=== PATIENT | male | born 1955 | race Caucasian/White ===

== ENCOUNTER 2019-11-17 11:46 | Inpatient (IN) ==
[2019-12-21] MEDS ORDERED: DEXTROSE 50% 25 GM/50 ML VIAL IV PRN (09:02)
[2019-12-21] MEDS ORDERED: GLUCAGON 1 MG VIAL IM PRN (09:02)
[2019-12-21 10:32] LABS: Albumin 3.3 G/DL (3.4-5.0); Bilirubin,Total 0.6 MG/DL (0.2-1.0); Calcium 9.3 MG/DL (8.5-10.1); Osmolality,Calculated 280.8 MOS/KG (273-304); Total Protein 6.9 G/DL (6.4-8.3)
[2019-12-21] MEDS ORDERED: ZALEPLON 5 MG CAPSULE PO PRN (10:57)
[2019-12-21] MEDS ORDERED: MORPHINE 4 MG/1 ML VIAL IV PRN (10:57)
[2019-12-21] MEDS ORDERED: NITROGLYCERIN SL 0.4 MG TABLET SL PRN (10:57)
[2019-12-21] MEDS: CHLORHEXIDINE 0.12% ORAL RINSE 60 ML BOTTLE SWISH/SPIT SCH ×2 (11:05→22:18)
[2019-12-21 11:07] LABS: Basophils # 0.1 10*3/uL (0.0-0.2); Basophils % 0.7 % (0.0-0.8); Eosinophils # 0.2 10*3/uL (0.0-0.87); Eosinophils % 2.2 % (0.00-10.9); Hematocrit 42.7 VOL% (42.0-52.0); Hemoglobin 14.2 GM/DL (14.0-18.0); Immature Granulocytes % 0.3 %; Immature Granulocytes Absolute 0.02 #; Lymphocytes # 2.4 10*3/uL (1.4-4.0); Lymphocytes % 31.6 % (21.2-54.2); Mean Corpuscular HGB Conc 33.3 GM/DL (32-36); Mean Corpuscular Volume 89.9 FL (87-102); Mean Platelet Volume 9.2 FL (9.6-12.0); Monocytes % 7.3 % (1.7-12.7); Neutrophils % 57.9 % (38.7-73.9); Platelet Count 274 T/CUMM (130-400); Red Blood Count 4.75 MC/CUMM (3.8-5.5); Red Cell Distribution Width 12.9 % (9.3-17.3); White Blood Count 7.4 T/CUMM (4-12)
[2019-12-21 11:08] LABS: ABG HCO3 25.6 MMOL/L (20-26); ABG Oxygen Saturation 95.9 % (95-100); ABG PCO2 40.8 MM HG (35-48); ABG PH 7.415 (7.35-7.45); ABG PO2 83.2 MM HG (80-95); ABG TCO2 26.8 MMOL/L (23-27)
[2019-12-21] MEDS: INSULIN REGULAR 100 UNIT/ML SUBCUT SCH ×3 (11:16→22:17)
[2019-12-21] MEDS ORDERED: CLORAZEPATE 3.75 MG TABLET PO PRN (11:41)
[2019-12-21] MEDS ORDERED: hydrALAZINE 20 MG/1 ML VIAL IV PRN (13:59)
[2019-12-21] MEDS: CHLORHEXIDINE 4% SOLN 118 ML BOTTLE TOP SCH ×2 (15:58→22:18)
[2019-12-21] MEDS ORDERED: SIMVASTATIN 40 MG TABLET PO SCH (21:00)
[2019-12-21] MEDS: metFORMIN 500 MG TABLET PO SCH (22:18)
[2019-12-22] MEDS ORDERED: PAPAVERINE 60 MG/2 ML VIAL ONE (04:22)
[2019-12-22] MEDS ORDERED: VANCOMYCIN 1,000 MG VIAL ONE (04:23)
[2019-12-22] MEDS ORDERED: VANCOMYCIN 500 MG VIAL ONE (04:23)
[2019-12-22] MEDS ORDERED: CEFUROXIME INJ 1,500 MG in SYRINGE 1 EACH IV ONE (05:00)
[2019-12-22] MEDS ORDERED: LIDOCAINE 2% 5 ML VIAL ONE ×2 (05:37→10:22)
[2019-12-22] MEDS ORDERED: SUFentanil 250 MCG/5 ML AMP ONE (05:38)
[2019-12-22] MEDS ORDERED: MIDAZOLAM 10 MG/2 ML VIAL ONE (05:38)
[2019-12-22] MEDS ORDERED: ePHEDrine 50 MG/ML VIAL ONE (05:38)
[2019-12-22] MEDS ORDERED: PHENYLEPHRINE DRIP 20 MG/250 ML PREMIX IV ONE (05:38)
[2019-12-22] MEDS ORDERED: HEPARIN/NACL 0.9% 2 UNITS/ML 500 ML IV ONE (05:38)
[2019-12-22] MEDS ORDERED: CALCIUM CHLORIDE 1,000 MG/10 ML VIAL IV ONE (05:38)
[2019-12-22] MEDS ORDERED: NITROGLYCERIN DRIP 50 MG/250 ML BOTTLE IV ONE (05:39)
[2019-12-22] MEDS ORDERED: MINERAL OIL/PETROLATUM OPH OINT 3.5 GM TUBE ONE (05:39)
[2019-12-22] MEDS ORDERED: ETOMIDATE 40 MG/20 ML VIAL IV ONE (05:39)
[2019-12-22] MEDS ORDERED: SODIUM CHLORIDE 0.9% 250 ML IV ONE (05:39)
[2019-12-22] MEDS ORDERED: SODIUM CHLORIDE 0.9% 1,000 ML IV ONE (05:39)
[2019-12-22] MEDS ORDERED: LACTATED RINGERS 1,000 ML IV ONE (05:39)
[2019-12-22] MEDS ORDERED: AMINOCAPROIC ACID 5,000 MG/20 ML VIAL ONE (05:39)
[2019-12-22] MEDS ORDERED: VECURONIUM 10 MG VIAL IV ONE (05:39)
[2019-12-22] MEDS ORDERED: FAMOTIDINE 20 MG TABLET PO ONE (06:00)
[2019-12-22] MEDS ORDERED: DIAZEPAM 5 MG TABLET PO ONE (06:00)
[2019-12-22 07:44] LABS: ABG Base Excess 1.4 MMOL/L (-2.5-2.5); ABG HCO3 25.7 MMOL/L (20-26); ABG PCO2 38.9 MM HG (35-48); ABG PH 7.427 (7.35-7.45); ABG TCO2 22.1 MMOL/L (23-27); Glucose Heart Surgery 192 MG/DL (74-106); Hematocrit Heart Surgery 42.4 PERCENT (42-52); Hemoglobin Heart Surgery 13.8 G/DL (14.0-18.0); Ionized Calcium Arterial 1.15 MMOL/L (1.21-1.46); PCO2 Patient Temp Arterial 38.9 MMHG; PH Patient Temp Arterial 7.427; Patient Temperature 37 CELCIUS; Potassium Heart/CVR 3.9 MMOL/L (3.5-5.1); Sodium Heart/CVR 138 MMOL/L (135-145)
[2019-12-22] MEDS ORDERED: INSULIN REGULAR 100 UNIT/ML ONE (07:53)
[2019-12-22 08:47] LABS: Apearance,Urine CLEAR (Clear); Bilirubin,Urine Negative (Negative); Blood, Urine Moderate mg/dL (Negative); Glucose,Urine (UA) 50 mg/dL (Negative); Ketones,Urine Negative (Negative); Mucus,Urine Occasional /LPF (Occasional); Nitrite,Urine Negative (Negative); Protein,Urine Negative; RBC,Urine 49 /HPF (0-4); Squamous Epithelial Cell,Urine Occasional /HPF (0-10); Urine Color Yellow (Yellow); Urine Specific Gravity 1.013 (1.001-1.035); Urine Urobilinogen < 2.0 EU/DL (0.2-1.0); WBC,Urine 1 /HPF (0-6)
[2019-12-22 08:59] LABS: Hematocrit Heart Surgery 28.1 PERCENT (42-52); Hemoglobin Heart Surgery 9.1 G/DL (14.0-18.0); PCO2 Patient Temp Venous 35.8 MM HG; PH Patient Temp Venous 7.453; PO2 Patient Temp Venous 40.6 MM HG; Potassium Heart/CVR 4.4 MMOL/L (3.5-5.1); VBG Base Excess 1.4 MEQ/L (0-4); VBG HCO3 25.4 MEQ/L (24-28); VBG Oxygen Saturation 82.9 %; VBG PCO2 39.5 MMHG (41-51); VBG PH 7.423; VBG PO2 46.6 MMHG (17-40)
[2019-12-22 09:36] LABS: Hematocrit Heart Surgery 30.2 PERCENT (42-52); Hemoglobin Heart Surgery 9.8 G/DL (14.0-18.0); PCO2 Patient Temp Venous 32.6 MM HG; PH Patient Temp Venous 7.498; PO2 Patient Temp Venous 40.9 MM HG; Potassium Heart/CVR 3.9 MMOL/L (3.5-5.1); VBG Base Excess 2.4 MEQ/L (0-4); VBG HCO3 26.4 MEQ/L (24-28); VBG PCO2 35.9 MMHG (41-51); VBG PH 7.468
[2019-12-22 10:09] LABS: Hemoglobin Heart Surgery 11.2 G/DL (14.0-18.0); PCO2 Patient Temp Venous 34.6 MM HG; PH Patient Temp Venous 7.474; PO2 Patient Temp Venous 40.5 MM HG; VBG Base Excess 1.5 MEQ/L (0-4); VBG HCO3 24.8 MEQ/L (24-28); VBG Oxygen Saturation 77.5 %; VBG PCO2 34.6 MMHG (41-51); VBG PH 7.474; VBG PO2 40.5 MMHG (17-40)
[2019-12-22] MEDS ORDERED: ALBUMIN 5% 12.5 GM/250 ML VIAL IV ONE (10:13)
[2019-12-22] MEDS ORDERED: PHENYLEPHRINE DRIP 40 MG/250 ML PREMIX IV ONE (10:13)
[2019-12-22] MEDS ORDERED: MAGNESIUM SULFATE 5 GM/10 ML VIAL IV ONE (10:22)
[2019-12-22] MEDS ORDERED: FUROSEMIDE 20 MG/2 ML VIAL ONE ×2 (10:22→10:23)
[2019-12-22] MEDS ORDERED: PROTAMINE SULFATE 250 MG/25 ML VIAL IV ONE (10:22)
[2019-12-22] MEDS ORDERED: DEXTROSE 5% KCL 20 MEQ 20 MEQ/1,000 ML BAG IV ONE (10:22)
[2019-12-22] MEDS ORDERED: HEPARIN 10,000 UNIT/10 ML VIAL ONE (10:22)
[2019-12-22] MEDS ORDERED: ALBUMIN 25% 25 GM/100 ML VIAL IV ONE (10:22)
[2019-12-22] MEDS ORDERED: MANNITOL 100 GM/500 ML BAG IV ONE (10:22)
[2019-12-22] MEDS ORDERED: methylPREDNISolone SOD SUC 1,000 MG/8 ML VIAL ONE (10:22)
[2019-12-22] MEDS ORDERED: SODIUM BICARBONATE 50 MEQ/50 ML VIAL IV ONE (10:22)
[2019-12-22] MEDS ORDERED: PROTAMINE SULFATE 50 MG/5 ML VIAL IV ONE (10:23)
[2019-12-22 10:33] LABS: ABG HCO3 25.3 MMOL/L (20-26); ABG PCO2 33.9 MM HG (35-48); ABG PH 7.463 (7.35-7.45); ABG TCO2 21.4 MMOL/L (23-27); Glucose Heart Surgery 285 MG/DL (74-106); Hematocrit Heart Surgery 35.9 PERCENT (42-52); Hemoglobin Heart Surgery 11.7 G/DL (14.0-18.0); PCO2 Patient Temp Arterial 33.9 MMHG; PH Patient Temp Arterial 7.463; Patient Temperature 37 CELCIUS; Potassium Heart/CVR 3.6 MMOL/L (3.5-5.1); Sodium Heart/CVR 136 MMOL/L (135-145)
[2019-12-22] MEDS: CHLORHEXIDINE 0.12% ORAL RINSE 60 ML BOTTLE SWISH/SPIT SCH ×2 (10:36→20:33)
[2019-12-22] MEDS: metFORMIN 500 MG TABLET PO SCH (10:36)
[2019-12-22] MEDS: SODIUM CHLORIDE 0.9% 1,000 ML IV SCH (10:36)
[2019-12-22] MEDS: CHLORHEXIDINE 4% SOLN 118 ML BOTTLE TOP SCH (10:36)
[2019-12-22] MEDS: INSULIN REGULAR 100 UNIT/ML SUBCUT SCH (10:36)
[2019-12-22] MEDS: AMIODARONE INJ 450 MG in DEXTROSE 5% 241 ML IV SCH ×2 (11:02→19:25)
[2019-12-22] MEDS ORDERED: MAGNESIUM SULF RIDER 4 GM in PREMIX 1 EACH IV PRN (11:10)
[2019-12-22] MEDS ORDERED: ONDANSETRON 4 MG/2 ML VIAL IV PRN (11:10)
[2019-12-22] MEDS ORDERED: INSULIN REGULAR 100 UNIT/ML IV ONE (11:10)
[2019-12-22] MEDS ORDERED: MIDAZOLAM 10 MG/2 ML VIAL IV PRN (11:10)
[2019-12-22] MEDS ORDERED: DEXTROSE 50% 25 GM/50 ML VIAL IV PRN ×2 (11:10)
[2019-12-22] MEDS ORDERED: MAGNESIUM SULF RIDER 2 GM in PREMIX 1 EACH IV PRN (11:10)
[2019-12-22] MEDS ORDERED: LACTATED RINGERS 250 ML IV PRN (11:10)
[2019-12-22] MEDS ORDERED: NITROPRUSSIDE 100 MG in DEXTROSE 5% 250 ML IV PRN (11:10)
[2019-12-22] MEDS ORDERED: CALCIUM CHLORIDE 1,000 MG/10 ML SYRINGE IV PRN (11:10)
[2019-12-22] MEDS ORDERED: POTASSIUM CHLORIDE RIDER 10 MEQ in PREMIX 1 EACH IV PRN (11:10)
[2019-12-22] MEDS ORDERED: SODIUM CHLORIDE 0.45% 1,000 ML IV SCH ×2 (11:10)
[2019-12-22] MEDS ORDERED: PHENYLEPHRINE DRIP 40 MG/250 ML PREMIX IV PRN (11:10)
[2019-12-22] MEDS ORDERED: MORPHINE 10 MG/1 ML VIAL IV PRN (11:10)
[2019-12-22] MEDS ORDERED: ACETAMINOPHEN 650 MG SUPP RECTAL PRN (11:10)
[2019-12-22] MEDS ORDERED: CHLORHEXIDINE 4% SOLN 118 ML BOTTLE TOP PRN (11:10)
[2019-12-22] MEDS ORDERED: MIDAZOLAM 2 MG/2 ML VIAL IV PRN (11:10)
[2019-12-22] MEDS ORDERED: MORPHINE 4 MG/1 ML VIAL IV PRN (11:10)
[2019-12-22] MEDS ORDERED: VECURONIUM 10 MG VIAL IV PRN ×2 (11:10)
[2019-12-22] MEDS ORDERED: AMIODARONE 150 MG/3 ML VIAL ONE (11:16)
[2019-12-22] MEDS ORDERED: SEVOFLURANE 1 UNIT/15 MINUTE INH ONE (11:16)
[2019-12-22] MEDS: LACTATED RINGERS 1,000 ML IV PRN ×2 (11:20→17:12)
[2019-12-22] MEDS ORDERED: AMIODARONE 450 MG/9 ML VIAL IV ONE (11:36)
[2019-12-22 11:37] LABS: Basophils % 0.3 % (0.0-0.8); Eosinophils # 0.1 10*3/uL (0.0-0.87); Eosinophils % 0.6 % (0.00-10.9); Hematocrit 37.9 VOL% (42.0-52.0); Hemoglobin 12.5 GM/DL (14.0-18.0); Immature Granulocytes % 0.8 %; Immature Granulocytes Absolute 0.08 #; Lymphocytes % 9.1 % (21.2-54.2); Mean Corpuscular Volume 90.5 FL (87-102); Mean Platelet Volume 8.9 FL (9.6-12.0); Monocytes % 4.3 % (1.7-12.7); Neutrophils % 84.9 % (38.7-73.9); Platelet Count 242 T/CUMM (130-400); Red Blood Count 4.19 MC/CUMM (3.8-5.5); Red Cell Distribution Width 12.6 % (9.3-17.3); White Blood Count 10.6 T/CUMM (4-12)
[2019-12-22 11:47] LABS: INR 1.3; PT Patient Result 13.5 SECS (9.8-11.9); Partial Thromboplastin Time 27.1 SECS (23.9-33.8)
[2019-12-22 11:50] LABS: ABG Base Excess -0.5 MMOL/L (-2.5-2.5); ABG Oxygen Saturation 99.8 % (95-100); ABG PCO2 35.4 MM HG (35-48); ABG PH 7.427 (7.35-7.45); ABG TCO2 20.4 MMOL/L (23-27); Glucose Heart Surgery 271 MG/DL (74-106); Hematocrit Heart Surgery 39.6 PERCENT (42-52); Hemoglobin Heart Surgery 12.9 G/DL (14.0-18.0); Potassium Heart/CVR 3.8 MMOL/L (3.5-5.1)
[2019-12-22] MEDS: ALBUMIN 5% 12.5 GM in PREMIX 1 EACH IV PRN ×5 (12:01→20:55)
[2019-12-22 12:14] LABS: Albumin 3.1 G/DL (3.4-5.0); Bilirubin,Total 1.3 MG/DL (0.2-1.0); Calcium 8.4 MG/DL (8.5-10.1); Osmolality,Calculated 284.5 MOS/KG (273-304); Total Protein 5.5 G/DL (6.4-8.3)
[2019-12-22] MEDS: POTASSIUM CHLORIDE RIDER 20 MEQ in PREMIX 1 EACH IV PRN ×4 (12:27→20:06)
[2019-12-22 12:46] LABS: ABG Base Excess -0.4 MMOL/L (-2.5-2.5); ABG HCO3 24.1 MMOL/L (20-26); ABG Oxygen Saturation 99.2 % (95-100); ABG PH 7.408 (7.35-7.45); ABG TCO2 21.1 MMOL/L (23-27); Glucose Heart Surgery 309 MG/DL (74-106); Hematocrit Heart Surgery 38.4 PERCENT (42-52); Hemoglobin Heart Surgery 12.5 G/DL (14.0-18.0); Potassium Heart/CVR 4.1 MMOL/L (3.5-5.1)
[2019-12-22 12:46] LABS: CKMB % 6.9 %
[2019-12-22 12:49] LABS: Troponin I 1.93 NG/ML (0.00-0.045)
[2019-12-22] MEDS: INSULIN REGULAR DRIP 100 ML IV SCH ×2 (12:55→23:04)
[2019-12-22 13:49] LABS: ABG Base Excess -0.8 MMOL/L (-2.5-2.5); ABG HCO3 23.7 MMOL/L (20-26); ABG Oxygen Saturation 98.7 % (95-100); ABG PCO2 38.8 MM HG (35-48); ABG PH 7.396 (7.35-7.45); Glucose Heart Surgery 295 MG/DL (74-106); Hematocrit Heart Surgery 38.2 PERCENT (42-52); Hemoglobin Heart Surgery 12.4 G/DL (14.0-18.0); Potassium Heart/CVR 3.7 MMOL/L (3.5-5.1)
[2019-12-22] MEDS ORDERED: KETOROLAC 30 MG/1 ML VIAL IV PRN (14:49)
[2019-12-22] MEDS ORDERED: oxyCODONE/ACETAMINOPHEN 5-325 MG TABLET PO PRN (14:49)
[2019-12-22 15:16] LABS: ABG Base Excess -1.1 MMOL/L (-2.5-2.5); ABG HCO3 23.5 MMOL/L (20-26); ABG Oxygen Saturation 98.4 % (95-100); ABG PCO2 39.3 MM HG (35-48); ABG PH 7.388 (7.35-7.45); Glucose Heart Surgery 272 MG/DL (74-106); Potassium Heart/CVR 3.5 MMOL/L (3.5-5.1)
[2019-12-22 16:29] LABS: ABG Base Excess -2.8 MMOL/L (-2.5-2.5); ABG HCO3 22.1 MMOL/L (20-26); ABG Oxygen Saturation 98.1 % (95-100); ABG PCO2 42.3 MM HG (35-48); ABG PH 7.341 (7.35-7.45); ABG TCO2 20.4 MMOL/L (23-27); Glucose Heart Surgery 257 MG/DL (74-106); Hematocrit Heart Surgery 36.6 PERCENT (42-52); Hemoglobin Heart Surgery 11.9 G/DL (14.0-18.0); Potassium Heart/CVR 3.7 MMOL/L (3.5-5.1)
[2019-12-22] MEDS: CEFUROXIME INJ 1,500 MG in SYRINGE 1 EACH IV SCH (18:11)
[2019-12-22 19:24] LABS: ABG Base Excess -4.2 MMOL/L (-2.5-2.5); ABG Oxygen Saturation 97.5 % (95-100); ABG PCO2 40.1 MM HG (35-48); ABG PH 7.336 (7.35-7.45); ABG TCO2 19.2 MMOL/L (23-27); Glucose Heart Surgery 249 MG/DL (74-106); Hematocrit Heart Surgery 35.2 PERCENT (42-52); Hemoglobin Heart Surgery 11.4 G/DL (14.0-18.0)
[2019-12-22] MEDS: INSULIN REGULAR 100 UNIT/ML IV PRN ×3 (19:34→23:47)
[2019-12-22] MEDS ORDERED: FUROSEMIDE 40 MG/4 ML VIAL IV PRN (19:43)
[2019-12-22 19:54] LABS: CKMB % 5.8 %
[2019-12-22 19:59] LABS: Troponin I 4.23 NG/ML (0.00-0.045)
[2019-12-22] MEDS ORDERED: AMIODARONE INJ 450 MG in DEXTROSE 5% 241 ML IV SCH (20:00)
[2019-12-22] MEDS: PANTOPRAZOLE 40 MG VIAL IV SCH (20:55)
[2019-12-23 00:21] LABS: ABG Base Excess -1.8 MMOL/L (-2.5-2.5); ABG HCO3 22.8 MMOL/L (20-26); ABG Oxygen Saturation 95.9 % (95-100); ABG PH 7.396 (7.35-7.45); ABG PO2 83.7 MM HG (80-95); Glucose Heart Surgery 161 MG/DL (74-106); Hemoglobin Heart Surgery 11.3 G/DL (14.0-18.0); Potassium Heart/CVR 3.7 MMOL/L (3.5-5.1)
[2019-12-23] MEDS: POTASSIUM CHLORIDE RIDER 20 MEQ in PREMIX 1 EACH IV PRN ×2 (00:51→06:56)
[2019-12-23 01:23] LABS: ABG PCO2 38.1 MM HG (35-48); ABG PH 7.403 (7.35-7.45)
[2019-12-23 01:24] LABS: ABG Base Excess -1.3 MMOL/L (-2.5-2.5); ABG HCO3 23.2 MMOL/L (20-26); ABG Oxygen Saturation 96.7 % (95-100)
[2019-12-23 01:25] LABS: Glucose Heart Surgery 142 MG/DL (74-106); Potassium Heart/CVR 4.3 MMOL/L (3.5-5.1)
[2019-12-23 01:27] LABS: ABG TCO2 24.4 MMOL/L (23-27); Hemoglobin Heart Surgery 11.4 G/DL (14.0-18.0)
[2019-12-23 01:54] LABS: ABG Base Excess -0.9 MMOL/L (-2.5-2.5); ABG HCO3 23.6 MMOL/L (20-26); ABG Oxygen Saturation 97.4 % (95-100); ABG PH 7.386 (7.35-7.45); ABG PO2 91.8 MM HG (80-95); ABG TCO2 21.6 MMOL/L (23-27); Glucose Heart Surgery 145 MG/DL (74-106); Hematocrit Heart Surgery 33.5 PERCENT (42-52); Hemoglobin Heart Surgery 10.9 G/DL (14.0-18.0); Potassium Heart/CVR 4.1 MMOL/L (3.5-5.1)
[2019-12-23 03:40] LABS: ABG Base Excess 0.1 MMOL/L (-2.5-2.5); ABG HCO3 24.5 MMOL/L (20-26); ABG Oxygen Saturation 96.9 % (95-100); ABG PCO2 41.6 MM HG (35-48); ABG PH 7.389 (7.35-7.45); ABG PO2 85.3 MM HG (80-95); ABG TCO2 22.5 MMOL/L (23-27); Glucose Heart Surgery 127 MG/DL (74-106); Hematocrit Heart Surgery 35.1 PERCENT (42-52); Hemoglobin Heart Surgery 11.4 G/DL (14.0-18.0); Potassium Heart/CVR 3.8 MMOL/L (3.5-5.1)
[2019-12-23 04:05] LABS: Basophils % 0.1 % (0.0-0.8); Hematocrit 34.4 VOL% (42.0-52.0); Hemoglobin 11.2 GM/DL (14.0-18.0); Immature Granulocytes % 0.2 %; Immature Granulocytes Absolute 0.02 #; Lymphocytes # 0.6 10*3/uL (1.4-4.0); Lymphocytes % 6.4 % (21.2-54.2); Mean Corpuscular HGB Conc 32.6 GM/DL (32-36); Mean Platelet Volume 9.4 FL (9.6-12.0); Neutrophils % 87.3 % (38.7-73.9); Platelet Count 227 T/CUMM (130-400); Red Blood Count 3.74 MC/CUMM (3.8-5.5); Red Cell Distribution Width 13.2 % (9.3-17.3); White Blood Count 9.8 T/CUMM (4-12)
[2019-12-23 04:21] LABS: CKMB % 4.8 %
[2019-12-23 04:26] LABS: Albumin 3.9 G/DL (3.4-5.0); Bilirubin,Direct 0.26 MG/DL (0.0-0.20); Bilirubin,Total 0.7 MG/DL (0.2-1.0); Calcium 8.6 MG/DL (8.5-10.1); Osmolality,Calculated 282.1 MOS/KG (273-304); Total Protein 6.3 G/DL (6.4-8.3)
[2019-12-23 04:52] LABS: Troponin I 4.4 NG/ML (0.00-0.045)
[2019-12-23] MEDS ORDERED: GLUCAGON 1 MG VIAL IM PRN ×3 (05:37→11:18)
[2019-12-23] MEDS ORDERED: INSULIN REGULAR 100 UNIT/ML SUBCUT SCH (06:00)
[2019-12-23] MEDS: CEFUROXIME INJ 1,500 MG in SYRINGE 1 EACH IV SCH ×2 (06:33→17:53)
[2019-12-23] MEDS ORDERED: SODIUM CHLOR 0.45% KCL 20 MEQ 20 MEQ/1,000 ML BAG IV SCH ×2 (07:30→11:18)
[2019-12-23] MEDS: INSULIN REGULAR 100 UNIT/ML SUBCUT SCH ×4 (07:58→21:54)
[2019-12-23] MEDS: CHLORHEXIDINE 0.12% ORAL RINSE 60 ML BOTTLE SWISH/SPIT SCH ×2 (08:00→21:55)
[2019-12-23] MEDS: PANTOPRAZOLE 40 MG VIAL IV SCH (08:01)
[2019-12-23] MEDS: AMIODARONE 200 MG TABLET PO SCH ×2 (09:47→21:54)
[2019-12-23] MEDS ORDERED: MAGNESIUM SULF RIDER 4 GM in PREMIX 1 EACH IV PRN (11:18)
[2019-12-23] MEDS ORDERED: DEXTROSE 10% 250 ML BAG IV PRN (11:18)
[2019-12-23] MEDS ORDERED: ACETAMINOPHEN 325 MG TABLET PO PRN (11:18)
[2019-12-23] MEDS ORDERED: MAGNESIUM HYDROXIDE SUSP 30 ML UDCUP PO PRN (11:18)
[2019-12-23] MEDS ORDERED: ZALEPLON 5 MG CAPSULE PO PRN (11:18)
[2019-12-23] MEDS ORDERED: DEXTROSE 50% 25 GM/50 ML VIAL IV PRN (11:18)
[2019-12-23] MEDS ORDERED: ALUMINUM/MAGNES/SIMETH MAX STR 30 ML UDCUP PO PRN (11:18)
[2019-12-23] MEDS ORDERED: LISINOPRIL/HCTZ 10-12.5 MG TABLET PO SCH (12:00)
[2019-12-23] MEDS: ASPIRIN EC 325 MG TABLET PO SCH (12:19)
[2019-12-23 13:13] LABS: CKMB % 3.2 %
[2019-12-23 13:14] LABS: Troponin I 3.74 NG/ML (0.00-0.045)
[2019-12-23] MEDS: ROSUVASTATIN 20 MG TABLET PO SCH (21:55)
[2019-12-24] MEDS: INSULIN REGULAR 100 UNIT/ML SUBCUT SCH ×6 (00:53→22:00)
[2019-12-24] MEDS ORDERED: FUROSEMIDE 40 MG/4 ML VIAL IV ONE (06:00)
[2019-12-24 06:58] LABS: Basophils % 0.1 % (0.0-0.8); Hematocrit 37.5 VOL% (42.0-52.0); Hemoglobin 11.7 GM/DL (14.0-18.0); Immature Granulocytes % 0.8 %; Immature Granulocytes Absolute 0.13 #; Lymphocytes # 1.9 10*3/uL (1.4-4.0); Mean Corpuscular HGB Conc 31.2 GM/DL (32-36); Mean Corpuscular Volume 95.2 FL (87-102); Mean Platelet Volume 9.8 FL (9.6-12.0); Monocytes % 8.1 % (1.7-12.7); Platelet Count 277 T/CUMM (130-400); Red Blood Count 3.94 MC/CUMM (3.8-5.5); Red Cell Distribution Width 13.2 % (9.3-17.3); White Blood Count 17.1 T/CUMM (4-12)
[2019-12-24 07:27] LABS: Alanine Aminotransferase 16 U/L (16-61); Albumin 3.6 G/DL (3.4-5.0); Alkaline Phosphatase 47 U/L (45-117); Aspartate Amino Transferase 16 U/L (0-37); Bilirubin,Indirect 0.8 MG/DL (0.0-1.0); Blood Urea Nitrogen 17 MG/DL (7-18); Estimated Glom Filtration Rate 120 ML/MIN; Glucose 193 MG/DL (74-106); Osmolality,Calculated 276.1 MOS/KG (273-304); Total Protein 6.8 G/DL (6.4-8.3)
[2019-12-24] MEDS: DOCUSATE SODIUM 100 MG CAPSULE PO SCH (08:52)
[2019-12-24] MEDS: LISINOPRIL/HCTZ 20-12.5 MG TABLET PO SCH (08:52)
[2019-12-24] MEDS: FERROUS SULFATE 325 MG TABLET PO SCH (08:52)
[2019-12-24] MEDS: metFORMIN 500 MG TABLET PO SCH ×2 (08:52→22:00)
[2019-12-24] MEDS: ASPIRIN EC 325 MG TABLET PO SCH (08:53)
[2019-12-24] MEDS: AMIODARONE 200 MG TABLET PO SCH ×2 (08:53→22:00)
[2019-12-24] MEDS: PANTOPRAZOLE 40 MG TABLET PO SCH (08:53)
[2019-12-24] MEDS: CHLORHEXIDINE 0.12% ORAL RINSE 60 ML BOTTLE SWISH/SPIT SCH ×2 (10:12→22:01)
[2019-12-24] MEDS: ROSUVASTATIN 20 MG TABLET PO SCH (22:00)
[2019-12-25] MEDS: INSULIN REGULAR 100 UNIT/ML SUBCUT SCH ×6 (00:39→21:02)
[2019-12-25 05:23] LABS: Basophils % 0.2 % (0.0-0.8); Eosinophils % 0.1 % (0.00-10.9); Hematocrit 37.2 VOL% (42.0-52.0); Hemoglobin 11.7 GM/DL (14.0-18.0); Immature Granulocytes % 0.6 %; Immature Granulocytes Absolute 0.08 #; Lymphocytes # 1.9 10*3/uL (1.4-4.0); Lymphocytes % 14.8 % (21.2-54.2); Mean Corpuscular HGB Conc 31.5 GM/DL (32-36); Mean Corpuscular Volume 93.9 FL (87-102); Mean Platelet Volume 9.7 FL (9.6-12.0); Monocytes % 8.8 % (1.7-12.7); Neutrophils % 75.5 % (38.7-73.9); Platelet Count 265 T/CUMM (130-400); Red Blood Count 3.96 MC/CUMM (3.8-5.5); Red Cell Distribution Width 13.1 % (9.3-17.3)
[2019-12-25 05:52] LABS: Alanine Aminotransferase 28 U/L (16-61); Albumin 3.2 G/DL (3.4-5.0); Alkaline Phosphatase 54 U/L (45-117); Aspartate Amino Transferase 38 U/L (0-37); Bilirubin,Indirect 1.2 MG/DL (0.0-1.0); Blood Urea Nitrogen 18 MG/DL (7-18); Calcium 8.9 MG/DL (8.5-10.1); Estimated Glom Filtration Rate 133 ML/MIN; Glucose 154 MG/DL (74-106); Osmolality,Calculated 277.8 MOS/KG (273-304); Total Protein 6.8 G/DL (6.4-8.3)
[2019-12-25] MEDS: DOCUSATE SODIUM 100 MG CAPSULE PO SCH (09:23)
[2019-12-25] MEDS: PANTOPRAZOLE 40 MG TABLET PO SCH (09:24)
[2019-12-25] MEDS: LISINOPRIL/HCTZ 20-12.5 MG TABLET PO SCH (09:24)
[2019-12-25] MEDS: POTASSIUM CHLORIDE 20 MEQ TABLET PO PRN (09:24)
[2019-12-25] MEDS: ASPIRIN EC 325 MG TABLET PO SCH (09:24)
[2019-12-25] MEDS: AMIODARONE 200 MG TABLET PO SCH ×2 (09:24→21:02)
[2019-12-25] MEDS: FERROUS SULFATE 325 MG TABLET PO SCH (09:25)
[2019-12-25] MEDS: CHLORHEXIDINE 0.12% ORAL RINSE 60 ML BOTTLE SWISH/SPIT SCH ×2 (09:25→21:02)
[2019-12-25] MEDS: metFORMIN 500 MG TABLET PO SCH ×2 (09:25→21:01)
[2019-12-25] MEDS: MAGNESIUM SULF RIDER 2 GM in PREMIX 1 EACH IV PRN (09:27)
[2019-12-25] MEDS: ROSUVASTATIN 20 MG TABLET PO SCH (21:01)
[2019-12-26] MEDS ORDERED: GLUCAGON 1 MG VIAL IM PRN (00:24)
[2019-12-26] MEDS ORDERED: DEXTROSE 50% 25 GM/50 ML VIAL IV PRN (00:24)
[2019-12-26] MEDS: INSULIN REGULAR 100 UNIT/ML SUBCUT SCH ×5 (00:26→20:49)
[2019-12-26] MEDS: metFORMIN 500 MG TABLET PO SCH ×2 (09:25→20:52)
[2019-12-26] MEDS: FERROUS SULFATE 325 MG TABLET PO SCH (09:25)
[2019-12-26] MEDS: ASPIRIN EC 325 MG TABLET PO SCH (09:25)
[2019-12-26] MEDS: DOCUSATE SODIUM 100 MG CAPSULE PO SCH (09:25)
[2019-12-26] MEDS: LISINOPRIL/HCTZ 20-12.5 MG TABLET PO SCH (09:25)
[2019-12-26] MEDS: GLIMEPIRIDE 4 MG TABLET PO SCH (09:25)
[2019-12-26] MEDS: PANTOPRAZOLE 40 MG TABLET PO SCH (09:25)
[2019-12-26] MEDS: AMIODARONE 200 MG TABLET PO SCH ×2 (09:25→20:52)
[2019-12-26] MEDS: CHLORHEXIDINE 0.12% ORAL RINSE 60 ML BOTTLE SWISH/SPIT SCH ×2 (09:30→20:52)
[2019-12-26] MEDS ORDERED: AMIODARONE INJ 100 MG in DEXTROSE 5% 100 ML IV ONE (11:10)
[2019-12-26] MEDS ORDERED: DILTIAZEM 50 MG/10 ML VIAL IV ONE (11:11)
[2019-12-26] MEDS ORDERED: AMIODARONE 450 MG/9 ML VIAL IV ONE (11:12)
[2019-12-26] MEDS ORDERED: dilTIAZem Drip 125 MG/125 ML PREMIX IV ONE (11:12)
[2019-12-26] MEDS ORDERED: AMIODARONE 150 MG/3 ML VIAL ONE (11:12)
[2019-12-26] MEDS: AMIODARONE INJ 450 MG in DEXTROSE 5% 241 ML IV SCH (11:30)
[2019-12-26] MEDS: APIXABAN 5 MG TABLET PO SCH ×2 (11:31→20:55)
[2019-12-26] MEDS: dilTIAZem Drip 125 MG/125 ML PREMIX IV SCH (11:32)
[2019-12-26] MEDS: ONDANSETRON 4 MG/2 ML VIAL IV PRN (13:59)
[2019-12-26] MEDS: ROSUVASTATIN 20 MG TABLET PO SCH (20:52)
[2019-12-27] MEDS: dilTIAZem Drip 125 MG/125 ML PREMIX IV SCH (01:59)
[2019-12-27] MEDS: AMIODARONE INJ 450 MG in DEXTROSE 5% 241 ML IV SCH (02:56)
[2019-12-27 05:47] LABS: Basophils % 0.2 % (0.0-0.8); Eosinophils # 0.1 10*3/uL (0.0-0.87); Eosinophils % 0.8 % (0.00-10.9); Hematocrit 37.5 VOL% (42.0-52.0); Hemoglobin 12.2 GM/DL (14.0-18.0); Immature Granulocytes % 0.5 %; Immature Granulocytes Absolute 0.07 #; Lymphocytes # 2.8 10*3/uL (1.4-4.0); Lymphocytes % 21.2 % (21.2-54.2); Mean Corpuscular HGB Conc 32.5 GM/DL (32-36); Mean Corpuscular Volume 90.8 FL (87-102); Mean Platelet Volume 9.4 FL (9.6-12.0); Neutrophils % 66.3 % (38.7-73.9); Platelet Count 345 T/CUMM (130-400); Red Blood Count 4.13 MC/CUMM (3.8-5.5); Red Cell Distribution Width 13.1 % (9.3-17.3); White Blood Count 13.3 T/CUMM (4-12)
[2019-12-27 06:07] LABS: Alanine Aminotransferase 24 U/L (16-61); Albumin 2.8 G/DL (3.4-5.0); Alkaline Phosphatase 63 U/L (45-117); Aspartate Amino Transferase 15 U/L (0-37); Bilirubin,Indirect 0.9 MG/DL (0.0-1.0); Blood Urea Nitrogen 31 MG/DL (7-18); Calcium 8.9 MG/DL (8.5-10.1); Estimated Glom Filtration Rate 92 ML/MIN; Glucose 103 MG/DL (74-106); Osmolality,Calculated 272.4 MOS/KG (273-304); Total Protein 6.4 G/DL (6.4-8.3)
[2019-12-27] MEDS: ONDANSETRON 4 MG/2 ML VIAL IV PRN (06:11)
[2019-12-27] MEDS ORDERED: DEXT 5% NACL 0.2% KCL 20 MEQ 20 MEQ/1,000 ML BAG IV SCH (09:00)
[2019-12-27] MEDS: GLIMEPIRIDE 4 MG TABLET PO SCH (09:40)
[2019-12-27] MEDS: AMIODARONE 200 MG TABLET PO SCH ×2 (09:40→21:32)
[2019-12-27] MEDS: PANTOPRAZOLE 40 MG TABLET PO SCH (09:40)
[2019-12-27] MEDS: POTASSIUM CHLORIDE 20 MEQ TABLET PO PRN ×2 (09:40→11:49)
[2019-12-27] MEDS: INSULIN REGULAR 100 UNIT/ML SUBCUT SCH ×4 (09:40→21:36)
[2019-12-27] MEDS: ASPIRIN EC 325 MG TABLET PO SCH (09:40)
[2019-12-27] MEDS: FERROUS SULFATE 325 MG TABLET PO SCH (09:41)
[2019-12-27] MEDS: metFORMIN 500 MG TABLET PO SCH ×2 (09:41→21:32)
[2019-12-27] MEDS: LISINOPRIL/HCTZ 20-12.5 MG TABLET PO SCH (09:41)
[2019-12-27] MEDS: DOCUSATE SODIUM 100 MG CAPSULE PO SCH (09:41)
[2019-12-27] MEDS: APIXABAN 5 MG TABLET PO SCH ×2 (09:41→21:32)
[2019-12-27] MEDS: CHLORHEXIDINE 0.12% ORAL RINSE 60 ML BOTTLE SWISH/SPIT SCH ×2 (09:42→21:33)
[2019-12-27] MEDS: MAGNESIUM SULF RIDER 2 GM in PREMIX 1 EACH IV PRN (09:44)
[2019-12-27] MEDS: POTASSIUM CHLORIDE INJ 20 MEQ in DEXTROSE 5% NACL 0.22% 1,000 ML IV SCH ×2 (11:48→21:54)
[2019-12-27] MEDS: ASCORBIC ACID 500 MG TABLET PO SCH ×2 (15:26→21:32)
[2019-12-27] MEDS: METOPROLOL TARTRATE 25 MG TABLET PO SCH (21:32)
[2019-12-27] MEDS: ROSUVASTATIN 20 MG TABLET PO SCH (21:32)
[2019-12-28 06:31] LABS: Basophils % 0.2 % (0.0-0.8); Eosinophils # 0.1 10*3/uL (0.0-0.87); Eosinophils % 1.1 % (0.00-10.9); Hematocrit 38.2 VOL% (42.0-52.0); Hemoglobin 12.5 GM/DL (14.0-18.0); Immature Granulocytes % 0.5 %; Immature Granulocytes Absolute 0.06 #; Lymphocytes # 2.3 10*3/uL (1.4-4.0); Lymphocytes % 17.2 % (21.2-54.2); Mean Corpuscular HGB Conc 32.7 GM/DL (32-36); Mean Corpuscular Volume 91.4 FL (87-102); Mean Platelet Volume 8.9 FL (9.6-12.0); Monocytes % 10.1 % (1.7-12.7); Neutrophils % 70.9 % (38.7-73.9); Platelet Count 364 T/CUMM (130-400); Red Blood Count 4.18 MC/CUMM (3.8-5.5); White Blood Count 13.3 T/CUMM (4-12)
[2019-12-28 07:00] LABS: Alanine Aminotransferase 23 U/L (16-61); Albumin 2.8 G/DL (3.4-5.0); Alkaline Phosphatase 67 U/L (45-117); Aspartate Amino Transferase 16 U/L (0-37); Bilirubin,Indirect 1.7 MG/DL (0.0-1.0); Blood Urea Nitrogen 32 MG/DL (7-18); Calcium 8.6 MG/DL (8.5-10.1); Estimated Glom Filtration Rate 103 ML/MIN; Glucose 105 MG/DL (74-106); Osmolality,Calculated 266.8 MOS/KG (273-304); Total Protein 6.3 G/DL (6.4-8.3)
[2019-12-28 07:01] LABS: Troponin I 0.607 NG/ML (0.00-0.045)
[2019-12-28] MEDS ORDERED: METOPROLOL TARTRATE 25 MG TABLET PO SCH ×2 (09:00→09:09)
[2019-12-28] MEDS: metFORMIN 500 MG TABLET PO SCH (09:58)
[2019-12-28] MEDS: ASCORBIC ACID 500 MG TABLET PO SCH (09:58)
[2019-12-28] MEDS: ASPIRIN EC 325 MG TABLET PO SCH (09:58)
[2019-12-28] MEDS: PANTOPRAZOLE 40 MG TABLET PO SCH (09:59)
[2019-12-28] MEDS: DOCUSATE SODIUM 100 MG CAPSULE PO SCH (09:59)
[2019-12-28] MEDS: GLIMEPIRIDE 4 MG TABLET PO SCH (09:59)
[2019-12-28] MEDS: AMIODARONE 200 MG TABLET PO SCH (09:59)
[2019-12-28] MEDS: FERROUS SULFATE 325 MG TABLET PO SCH (09:59)
[2019-12-28] MEDS: APIXABAN 5 MG TABLET PO SCH (09:59)
[2019-12-28] MEDS: INSULIN REGULAR 100 UNIT/ML SUBCUT SCH ×2 (10:08→13:04)
[2019-12-28] MEDS: CHLORHEXIDINE 0.12% ORAL RINSE 60 ML BOTTLE SWISH/SPIT SCH (10:08)
[2019-12-28] MEDS: POTASSIUM CHLORIDE INJ 20 MEQ in DEXTROSE 5% NACL 0.22% 1,000 ML IV SCH (10:09)
[2019-12-28] MEDS: METOPROLOL TARTRATE 25 MG TABLET PO SCH (10:14)
[2019-12-28] MEDS: CLINDAMYCIN 300 MG CAPSULE PO SCH ×2 (11:08→12:02)
[2019-12-28 12:02] VITALS: BP 101/56
== END 2019-12-28 14:03 | disposition home or self-care (01) | DRG 236 ==
LOC: N.4E 12-21 08:51 → N.CVR 12-22 10:51 → N.TELES 12-23 14:51